=== PATIENT | female | born 1945 | race Hispanic/Latino ===

== ENCOUNTER → 2017-12-10 | Outpatient (CLI) | payer OTHER, MEDICARE ==
[~2017-12-10] MED LIST: ASPI-1197 PO; ATOR20TA65 PO; CALC-1009 PO; CEPH500C2 PO; CLOP75TA32 PO; DULA0.75 SQ; FERS325 PO; FLUT16H NS; FOLI1TAB15 PO; FOLI1TAB61 PO; GABA-531 PO; GLUC-145 PO; HYDR25TA PO; LOSA25TA16 PO; METF-446 PO; METO25TA6 PO; MULT-248 PO; NITR0.4T50 SL; OMEP20CA10 PO; ONDA4TAB9 PO; POTA10TA18 PO; ROSU10TA PO; SITA100T12 PO
== END | disposition home or self-care (01) ==
LOC: RAH 10:35
PROVIDERS: ATTEND Internal Medicine Critical Care Medicine
DX: M79.601 Pain in right arm (principal)
CPT/HCPCS: 73060

== ENCOUNTER 2018-07-20 19:18 | Observation (INO) | payer OTHER, MEDICARE ==
[~2018-07-20] VITALS: Ht 152.4 cm; Wt 61.9 kg
[~2018-07-20 19:18] MED LIST changes: -ASPI-1197 PO; +ASPI-555 PO; -ATOR20TA65 PO; -CALC-1009 PO; +CARV6.2579 PO; -CEPH500C2 PO; +CLOP75TA14 PO; -CLOP75TA32 PO; -DULA0.75 SQ; +FERR159T2 PO; -FERS325 PO; +FLUO20CA30 PO; -FLUT16H NS; -FOLI1TAB15 PO; -FOLI1TAB61 PO; +FURO20TA4 PO; -GABA-531 PO; +GLIP5TAB11 PO; -GLUC-145 PO; -HYDR25TA PO; +ISOS30TA6 PO; -LOSA25TA16 PO; -METF-446 PO; -METO25TA6 PO; -MULT-248 PO; -OMEP20CA10 PO; -ONDA4TAB9 PO; -POTA10TA18 PO; +PROP15DR OP; -ROSU10TA PO; +vit d3 PO
[2018-07-20 19:47] LABS: BASOPHILS % (AUTO) 0.9 % (0.0-5.0); EOSINOPHILS % (AUTO) 4.2 % (0.0-8.0); HEMATOCRIT 32.4 % (36-48); LYMPHOCYTES % (AUTO) 30.3 % (21.0-51.0); MEAN CORPUSCULAR HEMOGLOBIN 28.5 pg (27.0-33.0); MEAN CORPUSCULAR HGB CONC 33.9 g/dL (32.0-36.0); MEAN CORPUSCULAR VOLUME 83.9 fL (79-99); MONOCYTES % (AUTO) 5.5 % (3.0-13.0); NEUTROPHILS % (AUTO) 59.1 % (40.0-77.0); PLATELET COUNT (AUTO) 300 K/uL (130-400); RED BLOOD CELL COUNT(AUTO) 3.86 MIL/uL (4.00-5.50); RED CELL DISTRIBUTION WIDTH 13.8 % (11.0-15.5)
[2018-07-20 20:01] LABS: CREATININE 1.8 mg/dL (0.5-1.5); POTASSIUM 4.8 mmol/L (3.5-5.1)
[2018-07-20 20:02] LABS: INR 0.95 (0.85-1.15); PARTIAL THROMBOPLASTIN TIME 29.1 SEC (26.3-35.5)
[2018-07-20 20:05] LABS: ALBUMIN 3.4 g/dL (3.5-5.0); BILIRUBIN,TOTAL 0.2 mg/dL (0.2-1.0); TOTAL PROTEIN, SERUM 7.8 g/dL (6.0-8.3)
[2018-07-20 20:10] LABS: B-TYPE NATRIURETIC PEPTIDE 300 pg/mL (0-100)
[2018-07-20] MEDS ORDERED: NITROGLYCERIN 1GM/1 INCH PACKET TD ONE (21:13)
[2018-07-20] MEDS: INSULIN R PO SS1 SQ SCH (21:28)
[2018-07-20] MEDS: NITROGLYCERIN 1GM/1 INCH PACKET TD SCH (22:00)
[2018-07-20 23:00] VITALS: BP 126/64
[2018-07-21] MEDS ORDERED: INSLAN SQ (00:01)
[2018-07-21] MEDS ORDERED: POTA-79 PO (00:01)
[2018-07-21] MEDS ORDERED: NITR0.4T50 SL (00:01)
[2018-07-21] MEDS ORDERED: METF-444 PO (00:01)
[2018-07-21] MEDS ORDERED: FURO40TA7 PO (00:01)
[2018-07-21] MEDS ORDERED: CHOL100040 PO (00:01)
[2018-07-21] MEDS ORDERED: CARB15DR OU (00:01)
[2018-07-21] MEDS ORDERED: ONDA4TAB4 PO (00:01)
[2018-07-21] MEDS ORDERED: FAMO20TA8 PO (00:01)
[2018-07-21] MEDS ORDERED: ALBU2.5V2 IH (00:01)
[2018-07-21 01:29] LABS: HEMATOCRIT 33.7 % (36-48); MEAN CORPUSCULAR HEMOGLOBIN 27.9 pg (27.0-33.0); MEAN CORPUSCULAR HGB CONC 33.2 g/dL (32.0-36.0); MEAN CORPUSCULAR VOLUME 84.1 fL (79-99); PLATELET COUNT (AUTO) 301 K/uL (130-400); RED BLOOD CELL COUNT(AUTO) 4.01 MIL/uL (4.00-5.50)
[2018-07-21 01:50] LABS: CARBON DIOXIDE 29 mmol/L (21-32); CHLORIDE 101 mmol/L (101-111); CREATINE KINASE, TOTAL 40 U/L (21-232); CREATININE 1.7 mg/dL (0.5-1.5); GLOMERULAR FILTR. RATE CALC 31 mL/min (>60); GLUCOSE,RANDOM 117 mg/dL (70-105); MYOGLOBIN 59 ng/mL (10-92); POTASSIUM 3.9 mmol/L (3.5-5.1); SODIUM SERUM 139 mmol/L (136-145); TROPONIN I < 0.04 ng/mL (0.00-0.06); UREA NITROGEN, BLOOD 45 mg/dL (7-18)
[2018-07-21 04:00] VITALS: BP 128/63
[2018-07-21] MEDS: NITROGLYCERIN 1GM/1 INCH PACKET TD SCH ×3 (04:28→21:07)
[2018-07-21] MEDS: INSULIN R PO SS1 SQ SCH ×3 (06:11→21:00)
[2018-07-21 07:30] VITALS: BP 138/71
[2018-07-21 07:44] LABS: CREATINE KINASE, TOTAL 42 U/L (21-232); MYOGLOBIN 57 ng/mL (10-92); TROPONIN I < 0.04 ng/mL (0.00-0.06)
[2018-07-21] MEDS: ASPIRIN 81MG TAB.CHEW PO SCH (09:22)
[2018-07-21 11:00] VITALS: BP 108/60
--- NOTE | 2018-07-21 14:51 | NUR ---
SPOKE WITH CASE MANAGEMENT REGAERDING CONSULT FOR RETAMA .. PER CM LONG THERE IS AN ORDER IT WILL TRIGGER FOR CM TO LOOK AT IT ..
[2018-07-21 16:00] VITALS: BP 137/72
[2018-07-21] MEDS ORDERED: DEXTROSE 50%-WATER 50 ML DISP.SYRIN IV ONE (16:12)
--- NOTE | 2018-07-21 16:13 | NUR ---
DONNA PLAN VISITED WITH PATIENT. PATIENT OKAY TO RETURN TO [facility]. REGINALDO SIGNED. SPOKE TO REP SAID NEEDED RE AUTH INFO SENT. Addendum: 07/21/18 at 1615 by ANDRÉS PEARL RN CM Amended: Links added.
--- NOTE | 2018-07-21 16:24 | NUR ---
PAGED PERLA PANCHAL,FORESTRY AID..REGARDING BS 41 ,SYMPTOMATIC SWEATING . GAVE DEXTROSE AMP DOSE. PATIENT NOW MORE ALERT,STAT GLUCOSE TAKEN . WILL CONT TO MONITOR . PENDING CALL BACK
[2018-07-21] MEDS: DEXTROSE 5 % AND 0.9 % NACL 1,000 ML IV SCH (18:00)
[2018-07-21 18:33] LABS: APPEARANCE,URINE Clear (CLEAR); BILIRUBIN,URINE Negative (NEGATIVE); COLOR,URINE Yellow (YELLOW); GLUCOSE, URINE (UA) Negative (NEGATIVE); KETONES,URINE Negative (NEGATIVE); LEUKOCYTE ESTERASE ,URINE Trace (NEGATIVE); NITRATE,URINE Negative (NEGATIVE); OCCULT BLOOD,URINE Negative (NEGATIVE); PROTEIN,URINE Negative (NEGATIVE); UROBILINOGEN,URINE 0.2 mg/dL (0.2-1.0)
[2018-07-21 18:40] LABS: BACTERIA,URINE Rare /HPF (None Seen); RBC,URINE None Seen /HPF (0-1); SQUAMOUS EPITHELIAL CELL,UR 0-2 /HPF (0-2); WBC,URINE 0-1 /HPF (0-1)
--- NOTE | 2018-07-21 19:30 | NUR ---
DISCHARGE PLACED ON HOLD DUE TO PATIENT WITH HYPOGLYCEMIA EPISODES, NEW ORDER FOR D 5 NS @75ML STARTED, PATIENT ALSO WITH URINARY RETENSION WITH BLADDER SCAN AT 849 READING AND ACTUAL OUPT AFTER BRAVO ORDER WAS 1200. PATIENT NOW AWAKE AND ALERT. WILL CONTINUE TO MONITOR FURTHER.
--- NOTE | 2018-07-21 19:41 | NUR ---
BRAVO 16FR PLACED USING STERILE TECHINIQUE, URINE SAMPLE SENT PER PROTOCOL . PATIENT TOLERATED WELL . 1200ML OUTPT CLEAR YELLOW URINE TO BRAVO BAG .
[2018-07-21 20:00] VITALS: BP 122/61
[2018-07-22] VITALS: BP 139/74
[2018-07-22] MEDS: NITROGLYCERIN 1GM/1 INCH PACKET TD SCH ×3 (03:51→18:32)
[2018-07-22 04:00] VITALS: BP 134/69
[2018-07-22] MEDS: DEXTROSE 5 % AND 0.9 % NACL 1,000 ML IV SCH (07:20)
[2018-07-22] MEDS: INSULIN R PO SS1 SQ SCH ×3 (07:30→16:30)
[2018-07-22 08:00] VITALS: BP 114/71
[2018-07-22] MEDS: ASPIRIN 81MG TAB.CHEW PO SCH (09:23)
--- NOTE | 2018-07-22 11:53 | NUR ---
Nutrition Intervention: Nutrition consult due to trigger. Pt. admitted with Dx of Angina. Pt. on 2gm Na 75gm CCD diet with good p.o. intake, as per pt. Pt. requesting soft/chopped food due to chewing difficulty. Labs reviewed(Alb 3.4). LBM: 07/20/18, per pt. -carlos Hinojosa. BMI: 26.7, normal for age. Recommendations: 1) Rec. 2gm Na 75gm CCD Mech Soft Finely Chopped diet. 2) Continue to monitor pt's nutritional status. 3) Consult RD as nutrition concerns arise. Addendum: 07/22/18 at [address] Amended: Links added.
[2018-07-22 12:00] VITALS: BP 125/77
--- NOTE | 2018-07-22 13:35 | NUR ---
CONTINUATION OF CARE Received report from nurse Светлана Morillo RN for continuation of care. Patient resting in bed. Intravenous fluids running at 75mL/hr to left forearm; site intact.
[2018-07-22 16:00] VITALS: BP 107/59
--- NOTE | 2018-07-22 17:26 | NUR ---
REPORT Called report to nurse Royce Perez LVN at [facility]. Medical Records have been informed to copy chart.
--- NOTE | 2018-07-22 20:02 | NUR ---
BOWEL MOVEMENT/TRANSFER TO SNF Patient had Fleets enema as ordered and has a large bowel movement. Reported relief and was transferred to [facility] as ordered.
== END 2018-07-22 19:59 ==
LOC: EDH 19:18 → EDHIP 20:45 → 3AH 23:00
PROVIDERS: ADMIT Internal Medicine Pulmonary Disease; ATTEND Internal Medicine Pulmonary Disease
DX: I20.9 Angina pectoris, unspecified (principal); I12.9 Hypertensive chronic kidney disease with stage 1 through stage 4 chronic kidney disease, or unspecified chronic kidney disease; N18.9 Chronic kidney disease, unspecified; E11.22 Type 2 diabetes mellitus with diabetic chronic kidney disease; Z82.0 Family history of epilepsy and other diseases of the nervous system; Z82.3 Family history of stroke; Z82.49 Family history of ischemic heart disease and other diseases of the circulatory system; Z83.3 Family history of diabetes mellitus; Z82.5 Family history of asthma and other chronic lower respiratory diseases; Z79.899 Other long term (current) drug therapy; Z86.73 Personal history of transient ischemic attack (TIA), and cerebral infarction without residual deficits
CPT/HCPCS: 36415 ×2; 71045; 80048; 80053; 81001; 82550 ×3; 82947; 82948 ×10; 83690; 83874 ×2; 83880; 84484 ×3; 85025; 85027; 85610; 85730; 93005 ×4; 96372 ×2; 96374; 97039 ×3; 97161; 99284; G0378 ×47; G8978; G8979; G8980; G8981; G8982; G8983; J1815 ×2; J7042 ×2; J7070